=== PATIENT | female | born 1965 | race Caucasian/White ===

== ENCOUNTER 2023-12-09 14:02 | Outpatient (CLI) | payer BC ==
[2023-12-09 14:42] LABS: Hematocrit 36.6 % (34.9-44.5); Hemoglobin 12.8 g/dL (12.0-15.5); Mean Corpuscular Hemoglobin 30.8 pg (27.0-33.0); Mean Corpuscular Volume 88.2 fl (81.6-98.3); Mean Platelet Volume 9.2 fl (7.4-10.4); Platelet Count 315 10x3/uL (150-450); Red Blood Cell (RBC) Count 4.15 10x6/uL (3.90-5.03); White Blood Cell (WBC) Count 8.5 10x3/uL (3.5-10.5)
== END 2023-12-09 14:03 | disposition home or self-care (01) ==
LOC: CSHLAB 14:02
PROVIDERS: ATTEND Surgery
DX: Z01.812 Encounter for preprocedural laboratory examination (principal); D05.11 Intraductal carcinoma in situ of right breast
CPT/HCPCS: 85027

== ENCOUNTER 2023-12-10 07:47 | Day surgery (SDC) | payer BC ==
[2023-12-09 14:31] VITALS: BMI 24.5
[2023-12-10] MEDS ORDERED: Bupivacaine PF 0.5% 30 ML VIAL ONE (09:44)
[2023-12-10] MEDS ORDERED: EPINEPHrine 1 MG/ML VIAL ONE (10:51)
[2023-12-10] MEDS ORDERED: CEFAZOLIN 2 GM VIAL ONE (10:58)
[2023-12-10] MEDS ORDERED: fentaNYL 50 mcg/mL 1 mL Vial ONE (10:58)
[2023-12-10] MEDS ORDERED: PROPOFOL 20 ML ONE (10:58)
[2023-12-10] MEDS ORDERED: SUCCINYLCHOLINE/SOD CL,ISO/PF 200 MG/10 ML SYRINGE FS ONE (11:22)
[2023-12-10] MEDS ORDERED: Ondansetron PF 4 MG/2 ML Vial ONE (12:09)
[2023-12-10] MEDS ORDERED: Dexamethasone 4 mg/ml Vial ONE (12:09)
[2023-12-10] MEDS ORDERED: Acetaminophen 325 MG TAB PO PRN (12:16)
[2023-12-10] MEDS ORDERED: HYDROcodone/Acetaminophen 5/325 mg Tablet PO PRN (12:16)
[2023-12-10] MEDS ORDERED: HYDROcodone/Acetaminophen 5/325 mg Tablet ONE (13:13)
== END 2023-12-10 14:05 | disposition home or self-care (01) ==
LOC: CSHSDC 07:47
PROVIDERS: ATTEND Surgery
PROC: 0HBT0ZZ Excision of Right Breast, Open Approach (ICD-10-PCS; principal; 2023-12-10)
DX: D05.11 Intraductal carcinoma in situ of right breast (principal); I10 Essential (primary) hypertension; E78.5 Hyperlipidemia, unspecified; Z88.1 Allergy status to other antibiotic agents; Z79.899 Other long term (current) drug therapy
CPT/HCPCS: 19281; 76098; 88307; J0171; J0665; J1100; J2405; J2704; J3010

== ENCOUNTER 2023-12-23 07:38 | Day surgery (SDC) | payer BC ==
[2023-12-22 10:05] VITALS: BMI 24.5
[2023-12-23] MEDS ORDERED: Bupivacaine PF 0.5% 30 ML VIAL ONE (07:56)
[2023-12-23] MEDS ORDERED: EPINEPHrine 1 MG/ML VIAL ONE (07:56)
[2023-12-23] MEDS ORDERED: Lidocaine 1% PF 5 ML VIAL ONE (08:42)
[2023-12-23] MEDS ORDERED: PROPOFOL 20 ML ONE (08:42)
[2023-12-23] MEDS ORDERED: fentaNYL 50 mcg/mL 1 mL Vial ONE (08:43)
[2023-12-23] MEDS ORDERED: Dexamethasone 20 MG/5 ML VIAL ONE (08:43)
[2023-12-23] MEDS ORDERED: Ondansetron PF 4 MG/2 ML Vial ONE (08:43)
[2023-12-23] MEDS ORDERED: Midazolam HCl 2 mg/2 ml Vial ONE (08:46)
[2023-12-23] MEDS ORDERED: CEFAZOLIN 1 GM VIAL ONE (08:55)
[2023-12-23] MEDS ORDERED: PHENYLEPHRINE-NS 100 MCG/ML 10 ML SYRINGE ONE (09:00)
[2023-12-23] MEDS ORDERED: ePHEDrine Sulfate 50 MG/10 ML VIAL ONE (09:00)
[2023-12-23] MEDS ORDERED: Glycopyrrolate 0.2 MG/ML 5 ML SYRINGE ONE (09:04)
[2023-12-23] MEDS ORDERED: Ketorolac Tromethamine 30 MG (1 mL) VIAL ONE (09:27)
[2023-12-23] MEDS ORDERED: Acetaminophen 325 MG TAB PO PRN (09:40)
[2023-12-23] MEDS ORDERED: HYDROcodone/Acetaminophen 5/325 mg Tablet PO PRN (09:40)
[2023-12-23] MEDS ORDERED: HYDROcodone/Acetaminophen 10/325 mg Tablet ONE (11:20)
[2023-12-23] MEDS ORDERED: HYDROcodone/Acetaminophen 5/325 mg Tablet ONE (11:25)
== END 2023-12-23 12:20 | disposition home or self-care (01) ==
LOC: CSHSDC 07:38
PROVIDERS: ATTEND Surgery
PROC: 0HBT0ZZ Excision of Right Breast, Open Approach (ICD-10-PCS; principal; 2023-12-23)
DX: D05.11 Intraductal carcinoma in situ of right breast (principal); I10 Essential (primary) hypertension; E78.5 Hyperlipidemia, unspecified; Z88.1 Allergy status to other antibiotic agents; Z88.2 Allergy status to sulfonamides; Z79.899 Other long term (current) drug therapy
CPT/HCPCS: 88307; C1713; J0171; J0665; J0690; J1100; J1885; J2250; J2405; J2704; J3010